=== PATIENT | female | born 1945 | race Caucasian/White ===

== ENCOUNTER 2017-02-02 13:12 | Emergency (ER) | payer OTHER, BC ==
[~2017-02-02] VITALS: Ht 167.6 cm; Wt 90.7 kg
--- NOTE | ~2017-02-02 | EKG ---
[place] [address] [facility] [place] [address] ELECTROCARDIOGRAM REPORT Name: LUCY WHYTE Room #: [facility]#: [id number] Admission: 02/02/17 Attend Phys: Discharge: 02/02/17 Date of : 41 Report #: [id number] THIS REPORT FOR: //name// [facility] ED Test Date: 2017-02-02 Test Time: 13:23:49 Pat Name: LUCY WHYTE Department: Room: Gender: F Bonus Clerk: Yanique DELATORRE : 1945 Requested By: Cole Rashid Order Number: [id number] MD: Lemuel Orozco Measurements Intervals [place] Rate: 74 P: 2 SD: 282 QRS: -73 QRSD: 157 T: 104 QT: 484 QTc: 537 Interpretive Statements Ventricular-paced complexes No further analysis attempted due to paced rhythm Compared to ECG 07/12/2016 07:04:59 No significant change was found Electronically Signed On 02-03-2017 16:39:53 CDT by Lemuel Orozco [email or web address] <ELECTRONICALLY SIGNED> By: Lemuel Orozco MD, [facility] 02/03/17 1639 [id number] 1323 Lemuel Orozco MD, [facility] /EPI
[~2017-02-02 13:12] MED LIST: ACETAMINOPHEN325 M1 OR; ALEVE220 MG PO; ASPIR 8181 MG PO; ELIQUIS5 MG PO; FISH OIL 1,001000 M2 PO; FLUZONE HI180 MCG/04 IM; GLUCOSAMINE HC500 MG PO; HYDROCODONE-AP1 EAC6 PO; IRON325 PO; LASIX 20 MG TAB20 MG PO; LIPITOR10 MG PO; MELATONIN3 MG PO; NORCO 5-325 TA1 EACH PO; PROZAC40 MG PO; TUMS PO; TYLENOL325 MG PO; VITAMIN D-32000 UNIT PO; VITAMIN E400 UNIT PO; WELLBUTRIN 75 M75 M1 PO; WELLBUTRIN XL150 MG PO; ZESTRIL10 MG PO; ZYPREXA 10 MG T10 MG PO; ZYPREXA2.5 MG PO
[2017-02-02 13:55] LABS: BASOPHILS 0.6 % (0.0-2.0); EOSINOPHILS 3.7 % (0.0-3.0); HEMATOCRIT 40.2 % (37.0-47.0); HEMOGLOBIN 13.1 gm/dL (12.0-15.0); LYMPHOCYTES 15.4 % (24.0-44.0); MCH 27.9 pg (26.0-34.0); MCHC 32.6 g/dL (28.0-37.0); MCV 85.6 fL (80.0-100.0); MONOCYTES 10.5 % (1.0-8.0); PLATELET COUNT 188 thou/uL (150-400); POLYS 69.8 % (36.0-66.0); RDW 15.7 % (10.5-14.5); WBC 7.2 thou/uL (4.0-11.0)
[2017-02-02 13:58] LABS: MANUAL DIFF NO
[2017-02-02 14:03] LABS: ANION GAP 11 mmol/L (7-16); BUN 43 mg/dL (7-18); CALCIUM 9.1 mg/dL (8.5-10.1); CHLORIDE 105 mmol/L (98-107); CO2 25 mmol/L (21-32); CREATININE 1.5 mg/dL (0.6-1.0); GLUCOSE 155 mg/dL (74-106); POTASSIUM 3.9 mmol/L (3.5-5.1); SODIUM 141 mmol/L (136-145)
[2017-02-02 14:11] LABS: TROPONIN-I < 0.04 ng/mL (<0.04-0.07)
== END 2017-02-02 16:51 | disposition home or self-care (01) ==
LOC: ER 13:12
PROVIDERS: Emergency Medicine
DX: R55 Syncope and collapse (principal); F31.9 Bipolar disorder, unspecified; M19.90 Unspecified osteoarthritis, unspecified site; E78.5 Hyperlipidemia, unspecified; I10 Essential (primary) hypertension; Z87.891 Personal history of nicotine dependence; Z90.49 Acquired absence of other specified parts of digestive tract; Z95.0 Presence of cardiac pacemaker